=== PATIENT | male | born 1965 | race Caucasian/White ===

== ENCOUNTER 2020-02-08 14:29 | Inpatient (IN) | payer OTHER ==
[~2020-02-08] VITALS: Ht 170.2 cm; Wt 72.0 kg
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
[2020-02-08 15:10] LABS: BASOPHILS # (AUTO) 0.06 x10^3/uL (0-0.1); BASOPHILS % (AUTO) 0 % (0-1); EOSINOPHILS # (AUTO) 0.05 x10^3/uL (0-0.4); EOSINOPHILS % (AUTO) 0 % (1-7); LYMPHOCYTES % (AUTO) 12 % (22-44); MD NO; MEAN CORPUSCULAR HEMOGLOBIN 31.7 pg (27.5-34.5); MEAN CORPUSCULAR HGB CONC 34.2 g/dL (33.2-36.2); MEAN CORPUSCULAR VOLUME 92.7 fL (81-97); MEAN PLATELET VOLUME 7.3 fL (7.4-10.4); MONOCYTES # (AUTO) 0.53 x10^3/uL (0.2-0.8); MONOCYTES % (AUTO) 4 % (2-9); NEUTROPHILS # (AUTO) 12.37 x10^3/uL (1.8-6.8); NEUTROPHILS % (AUTO) 84 % (42-75); PLATELET COUNT 270 x10^3/uL (130-400); RED BLOOD COUNT 5.32 x10^6/uL (4.38-5.82); RED CELL DISTRIBUTION WIDTH 14.1 % (9.4-14.8)
[2020-02-08 15:16] LABS: ALBUMIN 4.1 g/dL (3.4-5.0); ANION GAP 8 mmol/L (5-15); CALCIUM 9.1 mg/dL (8.5-10.1); CHLORIDE 107 mmol/L (98-107); CREATININE 1.04 mg/dL (0.7-1.3)
[2020-02-08 15:26] LABS: ALANINE AMINOTRANSFERASE 26 U/L (12-78); ALKALINE PHOSPHATASE 70 U/L (45-117); BILIRUBIN,TOTAL 1.2 mg/dL (0.2-1.0); TOTAL PROTEIN 7.3 g/dL (6.4-8.2)
--- NOTE | 2020-02-08 15:47 | NUR ---
PT BACK FROM IMAGING
--- NOTE | 2020-02-08 16:10 | NUR ---
PT TO IMAGING
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
--- NOTE | 2020-02-08 17:16 | NUR ---
[facility] MD AT BEDSIDE FOR EVALAUTION
[2020-02-08] MEDS ORDERED: LABETALOL 5MG/ML, 20ML IVPush PRN (17:30)
[2020-02-08] MEDS ORDERED: ONDANSETRON ODT 4 MG PO PRN (17:30)
[2020-02-08] MEDS ORDERED: IBUPROFEN 600 MG TABLET PO PRN (17:30)
[2020-02-08] MEDS ORDERED: BACLOFEN 10 MG TABLET PO PRN (17:30)
[2020-02-08] MEDS ORDERED: hydrALAzine 20 MG/ML, 1ML IVPush PRN (17:30)
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
[2020-02-08] MEDS ORDERED: ENOXAPARIN 40 MG/0.4 ML ONE (17:35)
[2020-02-08] MEDS: SODIUM CHLORIDE 0.9% 1,000 ML IV SCH (17:40)
[2020-02-08] MEDS: ENOXAPARIN 40 MG/0.4 ML SQ SCH (17:41)
[2020-02-08] MEDS: LORazepam 0.5MG TABLET PO SCH ×2 (18:00→21:28)
--- NOTE | 2020-02-08 18:09 | NUR ---
PT TO MRI
--- NOTE | 2020-02-08 18:46 | NUR ---
REPORT TO NOEMY ESTRADA
--- NOTE | 2020-02-08 19:12 | NUR ---
report to malvin bravo pt awaiting transport to floor
[2020-02-08 19:45] VITALS: BP 124/76
[2020-02-08] MEDS: INSULIN LISPRO 100 UNITS/ML, PEN SQ-INSULIN SCH (21:00)
[2020-02-08] MEDS: LIDODERM 5% PATCH TD PRN (21:30)
[2020-02-08 22:13] VITALS: BP 110/71
[2020-02-09] MEDS: LORazepam 0.5MG TABLET PO SCH ×6 (01:43→22:16)
[2020-02-09 01:44] VITALS: BP 100/63
[2020-02-09] MEDS: SODIUM CHLORIDE 0.9% 1,000 ML IV SCH (05:43)
[2020-02-09 05:49] LABS: BASOPHILS # (AUTO) 0.04 x10^3/uL (0-0.1); BASOPHILS % (AUTO) 0 % (0-1); EOSINOPHILS # (AUTO) 0.13 x10^3/uL (0-0.4); EOSINOPHILS % (AUTO) 1 % (1-7); LYMPHOCYTES # (AUTO) 3.06 x10^3/uL (1-3.4); LYMPHOCYTES % (AUTO) 29 % (22-44); MD NO; MEAN CORPUSCULAR HEMOGLOBIN 31.9 pg (27.5-34.5); MEAN CORPUSCULAR HGB CONC 34.3 g/dL (33.2-36.2); MEAN CORPUSCULAR VOLUME 92.9 fL (81-97); MEAN PLATELET VOLUME 7.1 fL (7.4-10.4); MONOCYTES # (AUTO) 0.91 x10^3/uL (0.2-0.8); MONOCYTES % (AUTO) 9 % (2-9); NEUTROPHILS # (AUTO) 6.57 x10^3/uL (1.8-6.8); NEUTROPHILS % (AUTO) 61 % (42-75); PLATELET COUNT 243 x10^3/uL (130-400); RED BLOOD COUNT 4.67 x10^6/uL (4.38-5.82); RED CELL DISTRIBUTION WIDTH 14.1 % (9.4-14.8)
[2020-02-09 05:54] LABS: ALBUMIN 3.4 g/dL (3.4-5.0); ANION GAP 5 mmol/L (5-15); BILIRUBIN, DIRECT 0.3 mg/dL (0.1-0.2); CALCIUM 8.4 mg/dL (8.5-10.1); CHLORIDE 108 mmol/L (98-107)
[2020-02-09 05:57] LABS: ALANINE AMINOTRANSFERASE 24 U/L (12-78); ALKALINE PHOSPHATASE 62 U/L (45-117); BILIRUBIN,TOTAL 1.6 mg/dL (0.2-1.0); CREATININE 0.99 mg/dL (0.7-1.3); TOTAL PROTEIN 6.1 g/dL (6.4-8.2)
[2020-02-09] MEDS: INSULIN LISPRO 100 UNITS/ML, PEN SQ-INSULIN SCH ×3 (07:00→16:00)
[2020-02-09 10:31] VITALS: BP 113/73
[2020-02-09] MEDS: ACETAMINOPHEN 325 MG TABLET PO PRN ×3 (10:36→22:16)
[2020-02-09 14:55] VITALS: BP 109/73
[2020-02-09] MEDS: ENOXAPARIN 40 MG/0.4 ML SQ SCH (17:30)
[2020-02-09 20:06] VITALS: BP 129/85
[2020-02-10 00:36] VITALS: BP 112/73
[2020-02-10] MEDS: LORazepam 0.5MG TABLET PO SCH ×3 (02:01→10:00)
[2020-02-10 06:15] LABS: BASOPHILS # (AUTO) 0.03 x10^3/uL (0-0.1); BASOPHILS % (AUTO) 0 % (0-1); EOSINOPHILS # (AUTO) 0.28 x10^3/uL (0-0.4); EOSINOPHILS % (AUTO) 3 % (1-7); LYMPHOCYTES # (AUTO) 2.45 x10^3/uL (1-3.4); LYMPHOCYTES % (AUTO) 24 % (22-44); MD NO; MEAN CORPUSCULAR HEMOGLOBIN 31.8 pg (27.5-34.5); MEAN CORPUSCULAR HGB CONC 34.4 g/dL (33.2-36.2); MEAN CORPUSCULAR VOLUME 92.4 fL (81-97); MEAN PLATELET VOLUME 7.5 fL (7.4-10.4); MONOCYTES # (AUTO) 0.68 x10^3/uL (0.2-0.8); MONOCYTES % (AUTO) 7 % (2-9); NEUTROPHILS # (AUTO) 6.79 x10^3/uL (1.8-6.8); NEUTROPHILS % (AUTO) 66 % (42-75); PLATELET COUNT 233 x10^3/uL (130-400); RED BLOOD COUNT 5.02 x10^6/uL (4.38-5.82); RED CELL DISTRIBUTION WIDTH 13.9 % (9.4-14.8)
[2020-02-10 07:52] VITALS: BP 112/73
[2020-02-10] MEDS: ACETAMINOPHEN 325 MG TABLET PO SCH ×2 (08:19→16:22)
[2020-02-10] MEDS: LIDODERM 5% PATCH TD PRN (08:22)
[2020-02-10 13:54] VITALS: BP 129/89
[2020-02-10] MEDS ORDERED: OXYcodone IR 5MG TABLET PO PRN (15:00)
[2020-02-10] MEDS: ENOXAPARIN 40 MG/0.4 ML SQ SCH (17:13)
[2020-02-10 20:23] VITALS: BP 121/78
[2020-02-11] MEDS: ACETAMINOPHEN 325 MG TABLET PO SCH ×3 (00:14→16:24)
[2020-02-11 00:15] VITALS: BP 115/75
[2020-02-11] MEDS: MECLIZINE 12.5 MG TABLET PO SCH ×3 (08:26→16:24)
[2020-02-11 09:03] VITALS: BP 117/78
[2020-02-11] MEDS ORDERED: LIDO700A20 TD (11:12)
[2020-02-11] MEDS ORDERED: IBUP-1222 PO (11:12)
[2020-02-11] MEDS ORDERED: ACET325T26 PO (11:12)
[2020-02-11] MEDS ORDERED: MECL12.581 PO (11:12)
[2020-02-11 13:27] VITALS: BP 122/82
== END 2020-02-11 17:43 | disposition home or self-care (01) | DRG 552 ==
LOC: ED 17:31 → EDIP 17:32 → ED 18:04 → 3N 19:31 → OBSVTOIN 02-09 09:52
PROVIDERS: ADMIT Internal Medicine; ATTEND Hospitalist
DX: S12.391A Other nondisplaced fracture of fourth cervical vertebra, initial encounter for closed fracture (principal); F07.81 Postconcussional syndrome; V00.328A Other snow-ski accident, initial encounter; E80.4 Gilbert syndrome; R41.2 Retrograde amnesia; R41.1 Anterograde amnesia; D72.829 Elevated white blood cell count, unspecified; M50.31 Other cervical disc degeneration, high cervical region; W18.39XA Other fall on same level, initial encounter; Y93.89 Activity, other specified; Y92.89 Other specified places as the place of occurrence of the external cause; Y99.8 Other external cause status; S80.12XA Contusion of left lower leg, initial encounter
CPT/HCPCS: 36415; 70450; 70551; 72125; 72141; 80053; 82248; 82962; 83036; 83735; 84100; 85025; 86704; 86706; 86708; 86803; 87340; 96360; 96361; 99285; G0378; J1650; J7030